=== PATIENT | male | born 1960 | race Two or more races ===

== ENCOUNTER 2019-03-04 08:23 | Inpatient (IN) | payer MEDICAID ==
[~2019-03-04] VITALS: Ht 152.4 cm; Wt 140.6 kg
[2019-03-04] VITALS (23 sets, daily range): BP systolic 94–158; BP diastolic 52–82
--- NOTE | 2019-03-04 09:00 | NUR ---
MS LINK TRAINER NOTES Patient received directly from home accompanied by radio personality (Chrissy). Skin body assessment done. IV inserted with 20G on R wrist. Patient denies any pain. Not in any type of distress. Advised caregiver to take belongings home. Patient have schedule LEFT TOTAL KNEE ARTHROPLASTY at noon. Orders noted. Made patient comfortable. NPO since midnight. Safety measures in place. Will continue to monitor and assess patient
[2019-03-04] MEDS ORDERED: CELECOXIB 100 MG CAPSULE PO SCH ×2 (09:30→12:00)
[2019-03-04] MEDS ORDERED: oxyCODONE HCL SR 10MG TAB.SR.12H PO SCH (09:30)
[2019-03-04] MEDS ORDERED: ACETAMINOPHEN 325 MG TABLET PO PRN (09:30)
[2019-03-04] MEDS ORDERED: OXYB5TAB11 PO (10:55)
[2019-03-04] MEDS ORDERED: ALBUT2 CONTNEB (10:55)
[2019-03-04] MEDS ORDERED: METO100T14 PO (10:55)
[2019-03-04] MEDS ORDERED: FURO40TA5 PO (10:55)
[2019-03-04] MEDS ORDERED: RIVA10TA PO (10:55)
[2019-03-04] MEDS ORDERED: ERGO400C PO (10:55)
[2019-03-04] MEDS ORDERED: FLUT1BLS IH (10:55)
[2019-03-04] MEDS ORDERED: ALLO300T2 PO (10:55)
[2019-03-04] MEDS ORDERED: ATOR10TA PO (10:55)
--- NOTE | 2019-03-04 10:55 | NUR ---
RN NOTES Orders carried out
[2019-03-04] MEDS ORDERED: BACITRACIN 50000 UNITS/VIAL ONE (11:24)
[2019-03-04] MEDS ORDERED: oxyCODONE HCL SR 10MG TAB.SR.12H PO ONE (11:30)
--- NOTE | 2019-03-04 11:47 | NUR ---
MS RN - PROCEDURE NOTES Patient gettting transported to OR for Left knee arthroplasty. All consents signed. V/S WNL. Patient transferred in stable condition. Denied any pain
--- NOTE | 2019-03-04 12:02 | NUR ---
MS RN NOTES Celebrex given in OR
[2019-03-04] MEDS ORDERED: BUPIVACAINE 0.75% DEXT-PF 2 ML AMPUL ONE (12:34)
[2019-03-04] MEDS ORDERED: ANCEF 1 GM/50 ML D5W IV ONE ×2 (13:00)
[2019-03-04] MEDS ORDERED: TRANEXAMIC ACID 3,000 MG in SODIUM CHLORIDE IRRIG SOLUTION 70 ML IR ONE (13:00)
[2019-03-04] MEDS ORDERED: ROCURONIUM BROMIDE 50 MG/5 ML ONE (13:15)
[2019-03-04] MEDS ORDERED: COLACE 250 MG CAPSULE PO PRN (14:30)
[2019-03-04] MEDS ORDERED: AMBIEN 5 MG TABLET PO PRN (14:30)
[2019-03-04] MEDS ORDERED: DULCOLAX 10 MG/SUPP.RECT RC PRN (14:30)
[2019-03-04] MEDS ORDERED: ZOFRAN 4mg/2ML IV PRN (14:30)
[2019-03-04] MEDS ORDERED: SENOKOT 8.6 MG TABLET PO PRN (14:30)
[2019-03-04] MEDS ORDERED: ALBUTEROL FS 2.5 MG/3 ML VIAL.NEB ONE ×2 (14:55→15:02)
[2019-03-04] MEDS ORDERED: HYDROCORTISONE SOD SUCCINATE 100 MG/2 ML VIAL ONE (14:59)
--- NOTE | 2019-03-04 15:30 | NUR ---
RT PATIENT REC'D FROM OR ORALLY INTUBATED WITH A 8.0 ETT SECURED AT 26CM. BILAT BREATH SOUNDS HEARD. PLACED ON [facility] VENT WITH SETTINGS GIVEN BY MD: AC12, 500, 60%, +5. ALARMS CHECKED + AUDIBLE. CUFF PRESSURE CHECKED EQUIPMENT HIRE MANAGER. PATIENT SUCTIONED WITH NO SECRETIONS. AMBU BAG AT [facility] Addendum: 03/04/19 at 1612 by JOSE ANGEL RT Amended: Links added.
--- NOTE | 2019-03-04 15:47 | NUR ---
MS RN NOTES OR nurse called to give report. Patient will be transferred and monitored in ICU. Called and left a voicemail to Chrissy FERGUSON) and gave report to ICU Nurse.
--- NOTE | 2019-03-04 15:49 | NUR ---
MS RN NOTES CG called back and made aware of patient's status
[2019-03-04] MEDS: IPRATROPIUM NEB FS 0.5 MG/2.5 ML AMPUL.NEB NEB SCH ×2 (16:30→19:17)
[2019-03-04] MEDS: ALBUTEROL HALF STRENGTH 1.25 MG/3 ML VIAL.NEB NEB SCH ×2 (16:30→19:17)
[2019-03-04 16:46] LABS: ABG BASE EXCESS -3.1 mmol/L; ABG OXYGEN SATURATION 97.8 % (92.0-98.5); ABG PCO2 47.8 mmHg (35.0-45.0); ABG PO2 113.8 mmHg (75.0-100.0); AaDO2 261.4 mmHg; COHb 1.2 % (0.5-1.5); MetHb 0.6 % (0.0-1.5); SITE, ABG Right Radial
[2019-03-04 17:04] LABS: BASOPHILS % (AUTO) 0.3 % (0.0-2.0); EOSINOPHILS % (AUTO) 0.9 % (0.0-6.0); HEMATOCRIT 49 % (39-51); HEMOGLOBIN 15.9 g/dL (13.5-17.5); LYMPHOCYTES # (AUTO) 0.4 /CMM (0.8-4.8); LYMPHOCYTES % (AUTO) 3.6 % (20.0-44.0); MEAN CORPUSCULAR HGB CONC 33 g/dl (31.0-36.0); MEAN CORPUSCULAR VOLUME 90 fL (80-96); MONOCYTES # (AUTO) 0.2 /CMM (0.1-1.30); NEUTROPHILS # (AUTO) 11.2 /CMM (1.8-8.9); NEUTROPHILS % (AUTO) 93.2 % (43.0-81.0); PLATELET COUNT (AUTO) 173 /CMM (150-450); RED BLOOD CELL COUNT(AUTO) 5.42 MIL/uL (4.5-6.0)
[2019-03-04 17:35] LABS: CALCIUM, SERUM 7.7 mg/dL (8.5-10.1); CREATININE 1.9 mg/dL (0.6-1.3); POTASSIUM 5.3 mmol/L (3.5-5.1)
[2019-03-04] MEDS: ANCEF 1 G in IV D5W 50 ML IV SCH (18:27)
[2019-03-04] MEDS: PROPOFOL 100 ML IV PRN ×3 (18:27→22:20)
--- NOTE | 2019-03-04 19:45 | NUR ---
ICU/CORPORATE TAX MANAGER RECEIVED REPORT FROM DAY NURSE. SEE FLOWSHEET FOR FULL ASSESSMENT, INCLUDING VENT SETTINGS, WELL SKIN ISSUES AND THE INTERVENTIONS TO THEM. PT IS CURRENTLY ON SEDATION, SEE IV SPREAD SHEET FOR RATES. PT APPEARS TO BE IN NO ACUTE DISTRESS AT THIS TIME, PT WAS TURNED AND REPOSITIONED FOR COMFORT AND CARE. WILL CONTINUE TO MONITOR THIS PT
--- NOTE | 2019-03-04 22:00 | NUR ---
ICU/TEAM MEMBER PT'S FAMILY CALLED, GAVE HER UPDATE AND ANSWERED ANY QUESTIONS.
[2019-03-05] VITALS (55 sets, daily range): BP systolic 88–136; BP diastolic 49–100
[2019-03-05] MEDS: PROPOFOL 100 ML IV PRN ×9 (00:49→23:17)
[2019-03-05] MEDS: IV 1/2NS 1000 ML 1,000 ML IV PRN ×3 (00:51→20:59)
--- NOTE | 2019-03-05 01:10 | NUR ---
ICU/DOPE HOUSE OPERATOR HELPER PT HAS HISTORY OF DM, NO ACCU CHECK WAS ORDERED.RANDOM BLOOD SUGAR WAS DONE AT 149. WILL CONTINUE TO MONITOR THIS PT AND THE BLOOD SUGAR.
[2019-03-05] MEDS: IPRATROPIUM NEB FS 0.5 MG/2.5 ML AMPUL.NEB NEB SCH ×4 (01:18→19:31)
[2019-03-05] MEDS: ALBUTEROL HALF STRENGTH 1.25 MG/3 ML VIAL.NEB NEB SCH ×4 (01:18→19:31)
--- NOTE | 2019-03-05 02:10 | NUR ---
ICU/JOINT YARNER PT WAS GIVEN AM CARE, ALONG WITH ORAL CARE. PT TOLERATED THIS WELL REMAINS ON CURRENT VENT SETTINGS WITH SATURATION AT 98%. PT WAS TURNED AND REPOSITIONED FOR COMFORT AND CARE. NO ACUTE DISTRESS SEEN. PT APPEARS TO BE RESTING CONFORMABLY. WILL CONTINUE TO MONITOR THIS PT.
[2019-03-05] MEDS: ANCEF 1 G in IV D5W 50 ML IV SCH (03:15)
--- NOTE | 2019-03-05 04:35 | NUR ---
ICU/DIE TURNER AM LABS ALONG WITH CHEST XRAY WERE DONE. AWAIT FOR ANY ABNORMAL RESULTS. PT WAS TURNED AND REPOSITIONED FOR COMFORT AND CARE.
[2019-03-05 04:54] LABS: BASOPHILS % (AUTO) 0.4 % (0.0-2.0); HEMATOCRIT 49 % (39-51); HEMOGLOBIN 15.9 g/dL (13.5-17.5); LYMPHOCYTES # (AUTO) 0.5 /CMM (0.8-4.8); LYMPHOCYTES % (AUTO) 4.2 % (20.0-44.0); MEAN CORPUSCULAR HGB CONC 33 g/dl (31.0-36.0); MEAN CORPUSCULAR VOLUME 90 fL (80-96); MONOCYTES # (AUTO) 0.9 /CMM (0.1-1.30); MONOCYTES % (AUTO) 7.7 % (2.0-12.0); NEUTROPHILS # (AUTO) 9.8 /CMM (1.8-8.9); NEUTROPHILS % (AUTO) 87.7 % (43.0-81.0); PLATELET COUNT (AUTO) 163 /CMM (150-450); RED BLOOD CELL COUNT(AUTO) 5.41 MIL/uL (4.5-6.0); WHITE BLOOD COUNT (AUTO) 11.1 K/uL (4.3-11.0)
[2019-03-05 05:08] LABS: CALCIUM, SERUM 7.7 mg/dL (8.5-10.1); CREATININE 2.5 mg/dL (0.6-1.3); MAGNESIUM 2.1 mg/dL (1.8-2.4); PHOSPHORUS 3.7 mg/dL (2.5-4.9); POTASSIUM 5.7 mmol/L (3.5-5.1)
--- NOTE | 2019-03-05 05:10 | NUR ---
ICU/BEAD PICKER PT IS TO WINGED FROM VENT TODAY, DECREASED THE SEDATION TO 45MCG FROM 50. WILL CLOSELY MONITOR THIS PT.
--- NOTE | 2019-03-05 06:05 | NUR ---
ICU/WIRE GALVANIZER PT HAS HISTORY OF DM, NO ACCU CHECK WAS ORDERED.RANDOM BLOOD SUGAR WAS DONE AT 160. WILL CONTINUE TO MONITOR THIS PT AND THE BLOOD SUGAR.
--- NOTE | 2019-03-05 06:34 | NUR ---
RT Pt received intubated w 8.0 ETT secured at 26 cm @ lip line. Pt is on [facility] vent w charted settings and is tolerating well. Alarms are set and audible. Bvm is @ hob. Hhn tx given and pt sx'd w no adverse reactions. No respiratory distress noted t/o shift. Addendum: 03/05/19 at 0635 by LANCE SNOW RT Amended: Links added.
--- NOTE | 2019-03-05 06:45 | NUR ---
ICU/REGISTERED DIETITIAN GOT AN ORDER FOR BLOOD SUGAR CHECKS EVERY Q 6 HRS AND NPO. AM SUGAR WAS 160. WILL CONTINUE TO MONITOR THIS PT'S SUGAR
[2019-03-05] MEDS ORDERED: DEXTROSE 50%-WATER 50 ML DISP.SYRIN IV PRN (07:00)
[2019-03-05] MEDS ORDERED: INSULIN REGULAR, HUMAN 100 UNIT/ML 3 ML VIAL SQ PRN (07:00)
[2019-03-05] MEDS: ASPIRIN 325 MG TABLET PO SCH (08:27)
[2019-03-05] MEDS: HYDROMORPHONE 1 MG/1 ML DISP.SYRIN IV PRN ×2 (08:29→14:46)
--- NOTE | 2019-03-05 09:15 | NUR ---
PT PLACED ON SIMV MODE PER DR CARLOS OBRIEN ABG TO BE TAKEN IN 30 MINUTES Addendum: 03/05/19 at 0922 by CHARLIE DUNLAP RT Amended: Links added.
--- NOTE | 2019-03-05 09:25 | NUR ---
WEANING ATTEMPT FAILED. PT PLACED BACK ON AC MODE SETTINGS PER DR CARLOS PROCTOR Addendum: 03/05/19 at 0930 by CHARLIE DUNLAP RT Amended: Links added.
[2019-03-05] MEDS: BLOOD SUGAR DIAGNOSTIC 1 EACH STRIP IN SCH ×3 (11:47→23:31)
[2019-03-05] MEDS: HEPARIN SODIUM, PORCINE 5000 UNITS/1 ML VIAL SQ SCH ×2 (14:47→22:54)
--- NOTE | 2019-03-05 17:35 | NUR ---
RT NOTE PT REC'D ORALLY INTUBATED VIA ETT SZ 8.0 SECURED AT 26CM @ THE LIP LINE. PT SHOWS NO SIGNS OF RESP DISTRESS OR SOB. PT SX'D FOR SMALL AMT OF THICK BLOOD TINGED SECRETIONS. ALARMS ARE SET AND AUDIBLE. VENT PLUGGED INTO RED OUTLET. AMBU BAG BEDSIDE. WILL CONTINUE TO MONITOR CLOSELY. Addendum: 03/05/19 at 1735 by CHARLIE DUNLAP RT Amended: Links added.
--- NOTE | 2019-03-05 18:00 | NUR ---
pt received at 0700, report received, alarms and patient checked, assessments completed and charted in EMR, all AM shift meds passed except for PO meds-no NG/OG access, vent wean/sedation vacation started at 0900-MD Miles in room and wean stopped r/t agitation-sedation restarted, Q2H turning completed, all assessments completed and charted, attempted to titrate propofol down and used PRN dilaudid to assist-pt still very agitated w/ lower doses of propofol-required titrating drip back up to 40mcg/kg, linen/gown change and hygiene completed today, pt in stable condition for report to PM nurse
--- NOTE | 2019-03-05 19:32 | NUR ---
PT RECEIVED ORALLY INTUBATED WITH 8.0 ETT SECURED @ 26 CM AT THE LIP ON MECHANICAL VENT W/ NOTED SETTINGS PER MD'S ORDER. VENT ALARMS CHECKED, VENT PLUGGED INTO RED OUTLET, AMBU BAG AT BEDSIDE. SUCTIONS MODERATE AMOUNT OF YELLOW/ BELL SECRETIONS. Q6 BREATHING TX GIVEN PER MD'S ORDER, NO ADVERSE REACTION NOTED. ETT PATENT AND SECURED. COSTUME SHOP MANAGER CUFF PRESSURE NOTED. NO RESPIRATORY DISTRESS NOTED AT THIS TIME . WILL CONTINUE TO MONITOR THE PT.
--- NOTE | 2019-03-05 19:45 | NUR ---
ICU/MARKETING COMMUNICATION MANAGER RECEIVED REPORT FROM DAY NURSE. SEE FLOWSHEET FOR FULL ASSESSMENT, INCLUDING VENT SETTINGS, WELL SKIN ISSUES AND THE INTERVENTIONS TO THEM. PT IS CURRENTLY ON SEDATION, SEE IV SPREAD SHEET FOR RATES. PT APPEARS TO BE IN NO ACUTE DISTRESS AT THIS TIME, PT WAS TURNED AND REPOSITIONED FOR COMFORT AND CARE. WILL CONTINUE TO MONITOR THIS PT.
--- NOTE | 2019-03-05 23:35 | NUR ---
ICU/CHEMIST ENZYMES PT'S MIDNIGHT BLOOD SUGAR WAS 129, THERE IS NO COVERAGE FOR THIS. PT IS CURRENTLY ON A NPO SLIDING SCALE. WILL CONTINUE TO MONITOR THIS PT'S SUGAR ORDERED BY .
[2019-03-06] VITALS (35 sets, daily range): BP systolic 55–163; BP diastolic 30–97
[2019-03-06] MEDS: ALBUTEROL HALF STRENGTH 1.25 MG/3 ML VIAL.NEB NEB SCH ×4 (00:46→19:30)
[2019-03-06] MEDS: IPRATROPIUM NEB FS 0.5 MG/2.5 ML AMPUL.NEB NEB SCH ×4 (00:46→19:40)
[2019-03-06] MEDS: PROPOFOL 100 ML IV PRN ×3 (01:38→07:15)
--- NOTE | 2019-03-06 01:45 | NUR ---
ICU/CARDIOPULMONARY SPECIALIST PT WAS GIVEN AM CARE, ALONG WITH ORAL CARE. PT TOLERATED THIS WELL REMAINS ON CURRENT VENT SETTINGS WITH SATURATION AT 98%. PT WAS TURNED AND REPOSITIONED FOR COMFORT AND CARE. NO ACUTE DISTRESS SEEN. PT APPEARS TO BE RESTING CONFORMABLY. WILL CONTINUE TO MONITOR THIS PT.
--- NOTE | 2019-03-06 03:50 | NUR ---
ICU/CUSTOMER MARKETING ASSISTANT AM LABS ALONG WITH CHEST XRAY WERE DONE. AWAIT FOR ANY ABNORMAL RESULTS. PT WAS TURNED AND REPOSITIONED FOR COMFORT AND CARE.
[2019-03-06 04:56] LABS: BASOPHILS # (AUTO) 0.1 /CMM (0.0-0.2); EOSINOPHILS % (AUTO) 0.7 % (0.0-6.0); HEMATOCRIT 47 % (39-51); HEMOGLOBIN 15.5 g/dL (13.5-17.5); LYMPHOCYTES # (AUTO) 0.8 /CMM (0.8-4.8); LYMPHOCYTES % (AUTO) 8.7 % (20.0-44.0); MEAN CORPUSCULAR HGB CONC 33 g/dl (31.0-36.0); MEAN CORPUSCULAR VOLUME 90 fL (80-96); MONOCYTES # (AUTO) 1.1 /CMM (0.1-1.30); MONOCYTES % (AUTO) 11.9 % (2.0-12.0); NEUTROPHILS # (AUTO) 6.9 /CMM (1.8-8.9); NEUTROPHILS % (AUTO) 77.7 % (43.0-81.0); PLATELET COUNT (AUTO) 137 /CMM (150-450); RED BLOOD CELL COUNT(AUTO) 5.24 MIL/uL (4.5-6.0); WHITE BLOOD COUNT (AUTO) 8.9 K/uL (4.3-11.0)
[2019-03-06 05:07] LABS: CALCIUM, SERUM 7.8 mg/dL (8.5-10.1); CREATININE 2.6 mg/dL (0.6-1.3); POTASSIUM 4.6 mmol/L (3.5-5.1)
[2019-03-06] MEDS: BLOOD SUGAR DIAGNOSTIC 1 EACH STRIP IN SCH ×4 (06:36→22:06)
[2019-03-06] MEDS: HEPARIN SODIUM, PORCINE 5000 UNITS/1 ML VIAL SQ SCH ×3 (06:42→22:05)
[2019-03-06] MEDS: IV 1/2NS 1000 ML 1,000 ML IV PRN ×2 (07:15→17:31)
[2019-03-06] MEDS: ASPIRIN 325 MG TABLET PO SCH (08:10)
--- NOTE | 2019-03-06 08:22 | NUR ---
RN NOTE 0715: Received patient sedated. With ETT to vent, tolerated settings at this time. With PIVs intact. On Diprivan @ 45mcg, IVF infusing as ordered. With Pérez cath intact, noted with clear yellow urine drained to BSD. With left knee dressing intact, immobilizer in place. DVT pumps on. 0745: Patient is fully awake, RT placed setting of vent to SIMV. Noted with agitation, moves right leg a lot but no pain when asked. 0820: Noted with agitation at times still. Tolerated SIMV. S/E by Hero BINDING CEMENTER FRENCH CORD, with c/o left leg pain, will give Dilaudid.
[2019-03-06] MEDS: HYDROMORPHONE 1 MG/1 ML DISP.SYRIN IV PRN ×4 (08:30→22:47)
[2019-03-06 08:42] LABS: ABG BASE EXCESS 0.9 mmol/L; ABG OXYGEN SATURATION 96.9 % (92.0-98.5); ABG PCO2 44.4 mmHg (35.0-45.0); ABG PO2 97.1 mmHg (75.0-100.0); COHb 0.8 % (0.5-1.5); MetHb 0.6 % (0.0-1.5); O2Hb 95.5 % (94.0-97.0); PEEP,BG 5 cm H2O; SITE, ABG Right Radial; VENT MODE, BG SIMV 4 PS 15 550 +5 80%; VT, ABG 550 mL
[2019-03-06] MEDS ORDERED: DC PROPOFOL WHEN EXTUBATED XX PRN ×2 (09:00→11:25)
--- NOTE | 2019-03-06 11:45 | NUR ---
RN NOTE 1130: S/E by Dr. Mlies, patient follows commands. With order for extubation. RT did extubate, patient tolerated. No stridor noted. Able to moan, placed on 3LPM O2 via NC. 95% O2 sat. 1145: Noted Afib 110-120's. Will continue to monitor.
--- NOTE | 2019-03-06 12:39 | NUR ---
RN NOTE S/E by ST for swallow eval, able to tolerate pureed. Started on diet.
[2019-03-06] MEDS: TYLENOL 650 MG TABLET PO PRN (15:46)
--- NOTE | 2019-03-06 15:59 | NUR ---
RN NOTE Patient still on pain after giving Tylenol for 5/10. Patient asked for a strong pain med for 10/10 left knee pain, daughter Bonnie at bedside, but at the time I'm about to administer, patient refused and said he's gonna ruin the visit of her daughter when he fall asleep. Will waste med with another nurse and will get if patient asks again.
--- NOTE | 2019-03-06 19:45 | NUR ---
ICU/ANTENNA MACHINE OPERATOR RECEIVED REPORT FROM DAY NURSE. SEE FLOWSHEET FOR FULL ASSESSMENT, INCLUDING OXYGEN VIA N/A. WELL SKIN ISSUES AND THE INTERVENTIONS TO THEM. PT IS CURRENTLY ALERT X2, WITH PERIODS OF CONFUSION. PT APPEARS TO BE IN NO ACUTE DISTRESS AT THIS TIME, PT WAS TURNED AND REPOSITIONED FOR COMFORT AND CARE. WILL CONTINUE TO MONITOR THIS PT.
--- NOTE | 2019-03-06 21:00 | NUR ---
ICU/EKG TECHNICIAN POST OP ORDERS RECEIVED SAID TO [facility] IVF WHEN PT IS TOLERATING PO FLUIDS. PT IS CURRENTLY DOING VERY WELL WITH PO FLUIDS. HEPLOCK CURRENT IVF HOWEVER WILL CONTINUE TO MONITOR PT AND PO INTAKE.
[2019-03-06] MEDS ORDERED: DEXTROSE 50%-WATER 50 ML DISP.SYRIN IV PRN (22:00)
--- NOTE | 2019-03-06 22:10 | NUR ---
ICU/COMPUGRAPH OPERATOR PT IS NOW EATING, CHANGED OVER SLIDING SCALE TO ACHS SLIDING SCALE INSTEAD OF NPO Q 6 HRS SLIDING SCALE. PT'S CURRENT BLOOD SUGAR IS 142, WHICH WAS COVERED WITH THE SLIDING SCALE.
--- NOTE | 2019-03-06 22:30 | NUR ---
ICU/MICRO COMPUTER DATA PROCESSOR PT WAS ABLE TO CALL DAUGHTER AND HAVE CONVERSATION FOR ABOUT 10-15 MINUTES. DAUGHTER SAID SHE'LL BE IN SOMETIME TOMORROW TO SEE HER FATHER.
[2019-03-06] MEDS: INSULIN REGULAR, HUMAN 100 UNIT/ML 3 ML VIAL SQ PRN (22:53)
--- NOTE | 2019-03-06 23:07 | NUR ---
ICU/LEAD AUDITOR PT COMPLAINED ABOUT PAIN WHICH WAS RATED 8/10. NOTIFIED CHARGE NURSE WHO THEN GAVE DILAUDID 1MG IVP TO THIS PT. WILL CONTINUE TO MONITOR THIS PT AND HIS CURRENT PAIN SCALE. CALL LIGHT WITHIN REACH.
[2019-03-07] VITALS (15 sets, daily range): BP systolic 100–177; BP diastolic 40–102
--- NOTE | 2019-03-07 00:47 | NUR ---
ICU/SECOND WATCH SERGEANT ASKED RT TO HOLD 0130 BREATHING TREATMENT SO THAT PT CAN SLEEP. PT HASN'T SLEPT VERY WELL. PT TO HAVE PHYSICAL THERAPY LATER TODAY. WILL CONTINUE TO MONITOR THIS PT.
[2019-03-07] MEDS: ALBUTEROL HALF STRENGTH 1.25 MG/3 ML VIAL.NEB NEB SCH ×4 (00:48→19:29)
[2019-03-07] MEDS: IPRATROPIUM NEB FS 0.5 MG/2.5 ML AMPUL.NEB NEB SCH ×4 (00:48→19:29)
[2019-03-07] MEDS: HYDROMORPHONE 1 MG/1 ML DISP.SYRIN IV PRN ×2 (02:47→12:15)
--- NOTE | 2019-03-07 03:00 | NUR ---
ICU/GLIDING PILOT INSTRUCTOR PT COMPLAINED ABOUT PAIN WHICH WAS RATED 8/10. NOTIFIED CHARGE NURSE WHO THEN GAVE DILAUDID 1MG IVP TO THIS PT. WILL CONTINUE TO MONITOR THIS PT AND HIS CURRENT PAIN SCALE. CALL LIGHT WITHIN REACH.
--- NOTE | 2019-03-07 05:26 | NUR ---
ICU/MONITORING AND EVALUATION ADVISOR AM LABS ALONG WITH CHEST XRAY WERE DONE. AWAIT FOR ANY ABNORMAL RESULTS. PT IS SELF TURNED AND REPOSITIONING FOR COMFORT.
[2019-03-07] MEDS: HEPARIN SODIUM, PORCINE 5000 UNITS/1 ML VIAL SQ SCH ×3 (06:46→22:50)
[2019-03-07] MEDS: INSULIN REGULAR, HUMAN 100 UNIT/ML 3 ML VIAL SQ PRN ×2 (07:15→21:56)
[2019-03-07] MEDS: BLOOD SUGAR DIAGNOSTIC 1 EACH STRIP IN SCH ×4 (07:15→21:37)
[2019-03-07] MEDS: ASPIRIN 325 MG TABLET PO SCH (08:11)
--- NOTE | 2019-03-07 08:48 | NUR ---
RN NOTE 0715: Received patient awake, A/Ox3, noted with saying non sensible words at times. BS 158, 2 units insulin given right deltoid. Breakfast served. PIVs intact. Pérez cath intact, noted with clear leroy colored urine drained to BSD. DVT pumps on. Left knee dressing intact, no bleeding. 2/10 left knee pain, repositioned for comfort, will continue to monitor. Afib 110-120's on the monitor. on 3LPM of O2 via NC, sat 96%. 0845: S/E by Hero WATERS, verbalized order to may transfer to [facility], and he will start him on Metoprolol for HR Afib 120's. CN aware re: the transfer order. Removed Pérez cath and placed condom cath, patient tolerated, no bleeding noted. Will monitor UOP. Informed SUPPLY CHAIN TECHNICIAN locked PIV for patient taking good oral intake, SUPPLY CHAIN TECHNICIAN agreed. Will encourage patient to inform staff for urge of voiding to start on urinals when patient is able.
[2019-03-07] MEDS: OXYBUTYNIN CHLORIDE 5 MG TABLET PO SCH (09:26)
[2019-03-07] MEDS: RIVAROXABAN 10 MG TABLET PO SCH (09:27)
[2019-03-07 09:31] LABS: BASOPHILS # (AUTO) 0.1 /CMM (0.0-0.2); BASOPHILS % (AUTO) 1.3 % (0.0-2.0); EOSINOPHILS % (AUTO) 5.6 % (0.0-6.0); HEMATOCRIT 44 % (39-51); HEMOGLOBIN 14.6 g/dL (13.5-17.5); LYMPHOCYTES # (AUTO) 0.6 /CMM (0.8-4.8); LYMPHOCYTES % (AUTO) 7.8 % (20.0-44.0); MEAN CORPUSCULAR HGB CONC 33 g/dl (31.0-36.0); MEAN CORPUSCULAR VOLUME 90 fL (80-96); MONOCYTES # (AUTO) 0.9 /CMM (0.1-1.30); MONOCYTES % (AUTO) 11.1 % (2.0-12.0); NEUTROPHILS % (AUTO) 74.2 % (43.0-81.0); PLATELET COUNT (AUTO) 133 /CMM (150-450); RED BLOOD CELL COUNT(AUTO) 4.92 MIL/uL (4.5-6.0); WHITE BLOOD COUNT (AUTO) 8.1 K/uL (4.3-11.0)
[2019-03-07 09:50] LABS: CALCIUM, SERUM 8.2 mg/dL (8.5-10.1); CREATININE 2.1 mg/dL (0.6-1.3); POTASSIUM 4.6 mmol/L (3.5-5.1)
[2019-03-07] MEDS: METOPROLOL TARTRATE 50 MG TABLET PO SCH ×2 (09:56→21:37)
[2019-03-07] MEDS: CHOLECALCIFEROL (VITAMIN D 3) 400 UNIT TABLET PO SCH (09:56)
[2019-03-07] MEDS: TYLENOL 650 MG TABLET PO PRN (10:18)
[2019-03-07] MEDS: FLUTICASONE/VILANTEROL 1 EACH BLST.W.DEV IH SCH (10:49)
--- NOTE | 2019-03-07 11:09 | NUR ---
RT NOTE: DAILY ABG'S CANCELLED PER .
--- NOTE | 2019-03-07 11:11 | NUR ---
RN NOTE Transferred patient to [facility] via bed using ACLS protocol. No any significant changes noted. VSS. Kept clean, warm and dry. Needs attended. Report given to Ghada DARBY for BEATRIZ. Condom cath intact.
--- NOTE | 2019-03-07 11:18 | NUR ---
RECEIVED PT FROM ICU. AWAKE A/O X3 , ON O2 3 L VIA NC, VS ARE STABLE AND WITHIN NORMAL RANGE. PT AT BEDSIDE.
[2019-03-07] MEDS: ATORVASTATIN 10 MG TABLET PO SCH (18:25)
--- NOTE | 2019-03-07 19:26 | NUR ---
PATIENT IN STABLE CONDITION, RESTING IN BED. ALL NEEDS ATTENDED AND PATIENT KEPT CLEAN AND COMFORTABLE. IV LINE INTACT AND PATENT H/L. WILL ENDORSE TO NEXT SHIFT FOR BEATRIZ.
--- NOTE | 2019-03-07 19:30 | NUR ---
RN NOTES CITIZENSHIP TEACHER BEDSIDE REPORT FROM AM RN. PATIENT IS IN BED A/OX3. NO SOB, NO DISTRESS NOTED AT THIS TIME. PATIENT IS ON 3L O2 VIA NC WITH SPO2 OF 95%. ON BARREL RIB MATTING MACHINE OPERATOR A-FIB CONTROLLED WITH HR OF 90'S.LEFT KNEE DRESSING IS IN PLACE WITH COMPLAINT OF PAIN BUT SAID HE WILL LET ME KNOW ABOUT PAIN MEDICATION. BOTH IV LINES ARE PATIENT AND INTACT. ALL SAFETY MEASURES ARE IMPLEMENTED, BED IN LOW, LOCKED POSITION, CALL LIGHT IN REACH. WILL CONTINUE TO MONITOR PATIENT CLOSELY. Addendum: 03/08/19 at 0035 by AUGIE LEWIS RN PATIENT HAS LEFT UPPER CHEST WALL PACE MAKER IN PLACE.
[2019-03-07] MEDS: HYDROCODONE/APAP 5/325MG 1 EACH TABLET PO PRN (21:36)
[2019-03-08] VITALS: BP 132/72
[2019-03-08] MEDS: ALBUTEROL HALF STRENGTH 1.25 MG/3 ML VIAL.NEB NEB SCH ×4 (01:07→20:22)
[2019-03-08] MEDS: IPRATROPIUM NEB FS 0.5 MG/2.5 ML AMPUL.NEB NEB SCH ×4 (01:07→20:22)
[2019-03-08 04:00] VITALS: BP 113/71
[2019-03-08 07:08] LABS: CALCIUM, SERUM 8.5 mg/dL (8.5-10.1)
[2019-03-08] MEDS: HEPARIN SODIUM, PORCINE 5000 UNITS/1 ML VIAL SQ SCH ×3 (07:15→23:04)
--- NOTE | 2019-03-08 07:15 | NUR ---
EGG SMELLER OPENING NOTE RECEIVED PATIENT IN BED. SLEEPING, EASILY AROUSED WITH VERBAL STIMULI. ORIENTED X3. ON 3L O2 VIA NC, TOLERATING WELL. IN NO APPARENT DISTRESS OR DISCOMFORT AT THIS TIME. RESPIRATIONS EVEN ANS UNLABORED. DENIES PAIN AND SOB. PATIENT ON TELE MONITORING WITH V-PACING A-FIB AND HR OF 73 AT THIS TIME. LEFT FOREARM 20G IVC SL, PATENT AND INTACT, LEFT HAND IVC 20G, SL, PATENT AND INTACT. PATIENT WITH CONDOM CATHETER IN PLACE, DRAINING CLEAR YELLOW URINE. PATIENT KEPT CLEAN AND COMFORTABLE. ALL NEEDS ATTENDED, SAFETY MEASURES IN PLACE, BED IN LOW LOCKED POSITION, SIDE RAILS UP X3, CALL LIGHT WITHIN EASY REACH. WILL CONTINUE TO MONITOR.
[2019-03-08 08:00] VITALS: BP 115/77
[2019-03-08] MEDS: CHOLECALCIFEROL (VITAMIN D 3) 400 UNIT TABLET PO SCH (08:17)
[2019-03-08] MEDS: BLOOD SUGAR DIAGNOSTIC 1 EACH STRIP IN SCH ×4 (08:17→21:31)
[2019-03-08] MEDS: OXYBUTYNIN CHLORIDE 5 MG TABLET PO SCH (08:17)
[2019-03-08] MEDS: ASPIRIN 325 MG TABLET PO SCH (08:17)
[2019-03-08] MEDS: METOPROLOL TARTRATE 50 MG TABLET PO SCH ×2 (08:18→21:31)
[2019-03-08] MEDS: FLUTICASONE/VILANTEROL 1 EACH BLST.W.DEV IH SCH (08:18)
[2019-03-08] MEDS: RIVAROXABAN 10 MG TABLET PO SCH (08:19)
[2019-03-08] MEDS: HYDROCODONE/APAP 5/325MG 1 EACH TABLET PO PRN (13:36)
[2019-03-08 16:00] VITALS: BP 125/80
[2019-03-08] MEDS: INSULIN REGULAR, HUMAN 100 UNIT/ML 3 ML VIAL SQ PRN (17:02)
[2019-03-08] MEDS: HYDROMORPHONE 1 MG/1 ML DISP.SYRIN IV PRN (17:05)
[2019-03-08] MEDS: ATORVASTATIN 10 MG TABLET PO SCH (17:05)
--- NOTE | 2019-03-08 17:56 | NUR ---
PATIENT IN STABLE CONDITION. ENDORSED TO VICKIE RN FOR BEATRIZ.
--- NOTE | 2019-03-08 19:25 | NUR ---
rn pm open note report recieved. patient seen resting in bed in semi fowlers position on room air. patient is post op left knee arthroplasty. left knee covered with den bandage cdi. immobilizer at the bedside. cpm machine at the bedside currently off. reviewed poc questions concerns addressed. reviewed pain management plan. states pain is tolerable at this time. bed down locked call light in reach. verbalized understanding to call for assistance if needed.
[2019-03-08 20:00] VITALS: BP 138/87
[2019-03-08 20:30] VITALS: BP 138/87
--- NOTE | 2019-03-08 21:36 | NUR ---
CONSTIPATION PATIENT STATES HE HAS NOT HAD BM SINCE February. ADMINISTERED SENNA ORDERED PRN. WILL CONT TO MONITOR.
[2019-03-09] MEDS: ALBUTEROL HALF STRENGTH 1.25 MG/3 ML VIAL.NEB NEB SCH ×4 (01:20→20:25)
[2019-03-09] MEDS: IPRATROPIUM NEB FS 0.5 MG/2.5 ML AMPUL.NEB NEB SCH ×4 (01:20→20:25)
[2019-03-09] MEDS: HEPARIN SODIUM, PORCINE 5000 UNITS/1 ML VIAL SQ SCH (06:18)
[2019-03-09] MEDS: BLOOD SUGAR DIAGNOSTIC 1 EACH STRIP IN SCH ×4 (06:31→21:51)
--- NOTE | 2019-03-09 06:48 | NUR ---
RN CLOSING NOTE. PATIENT IN BED SEMIFOWLERS ON 3LNC IN NO APPARENT DISTRESS. PATIENT COUGHING UP PHLEGM WITH SPECKS OF BLOOD. PATIENT DENIES PAIN AT THIS TIME. BED DOWN LOCKED SR X 2 CALL LIGHT IN REACH. WILL ENDORSE FOR BEATRIZ TO DAY SHIFT.
--- NOTE | 2019-03-09 07:19 | NUR ---
MS/RN Patient received Patient received from software designer. A/O X3, vital signs stable, denies any pain or discomfort at this time. Dressing to left knee dry and intact. Heplock 20g to left hand shows no signs of infiltration and flushes well with saline. Call light within reach, will continue to monitor and ensure safety.
[2019-03-09 08:00] VITALS: BP 135/99
[2019-03-09] MEDS: CHOLECALCIFEROL (VITAMIN D 3) 400 UNIT TABLET PO SCH (08:16)
[2019-03-09] MEDS: ASPIRIN 325 MG TABLET PO SCH (08:16)
[2019-03-09] MEDS: OXYBUTYNIN CHLORIDE 5 MG TABLET PO SCH (08:16)
[2019-03-09] MEDS: METOPROLOL TARTRATE 50 MG TABLET PO SCH ×2 (08:16→20:28)
[2019-03-09] MEDS: RIVAROXABAN 10 MG TABLET PO SCH (08:20)
[2019-03-09] MEDS: FLUTICASONE/VILANTEROL 1 EACH BLST.W.DEV IH SCH (08:22)
[2019-03-09 08:39] VITALS: BP 135/99
--- NOTE | 2019-03-09 08:41 | NUR ---
MS/RN S/B Dr Briggs Seen by Dr Briggs - patient to be discharged to SNF later today.
[2019-03-09] MEDS ORDERED: ALLOPURINOL 100 MG TABLET PO SCH (09:00)
[2019-03-09] MEDS: INSULIN REGULAR, HUMAN 100 UNIT/ML 3 ML VIAL SQ PRN (12:12)
--- NOTE | 2019-03-09 12:13 | NUR ---
MS/RN Blood sugar Blood sugar at noon 136, per sliding scale two units regular insulin to be administered.
[2019-03-09] MEDS: HYDROCODONE/APAP 5/325MG 1 EACH TABLET PO PRN ×2 (13:40→21:32)
--- NOTE | 2019-03-09 13:52 | NUR ---
MS/excavator backhoe operator plan Call received from Ave oil field caser. Patient now has accepting facility and will be discharged to [facility] in [place] . Awaiting authorization from insurance.
[2019-03-09 16:00] VITALS: BP 130/84
[2019-03-09 16:04] VITALS: BP 130/84
[2019-03-09] MEDS: ATORVASTATIN 10 MG TABLET PO SCH (18:00)
--- NOTE | 2019-03-09 18:33 | NUR ---
MS/eviction specialist Patient to be discharged to post acute later this evening, ambulance arranged for 9p grape picker. Patient will be going to [facility] . All paperwork completed and copies made, heplock removed, patient still has name bands to be removed. All belongings accounted for and signed off on belongings list. Will endorse to clearance coordinator.
--- NOTE | 2019-03-09 19:30 | NUR ---
RECEIVED PT IN BED AWAKE AND RESPONSIVE, BREATHING EVENLY. NO SOB, NAD. SKIN WARM AND DRY, DRESSING ON LLE C/D/I. NO C/O PAIN OR DISCOMFORT AT THIS TIME, PT TO BE DISCHARGED . AWARE AND UNDERSTANDS. AWAITING FOR THE TRANSPORTATION. NEEDS MET. BED LOW LOCKED. SRX2. CALL LIGHT WITHIN REACH, WILL CONT TO MONITOR.
[2019-03-09 20:00] VITALS: BP 143/81
[2019-03-09 20:28] VITALS: BP 143/81
--- NOTE | 2019-03-09 21:45 | NUR ---
PATIENT WAS PICKED UP BY AMBULANCE AND DISCHARGED TO THE SNF IN STABLE CONDITION. NORCO 5 TWO TABS GIVEN PRIOR TO DISCHARGE PER PT'S REQUEST FOR C/O L KNEE PAIN. ALL BELONGINGS WERE PICKED UP BY THE PT . D/C PAPERS ALONG WITH THE REPORT GIVEN TO THE PARAMEDICS. REPORT WAS ALREADY GIVEN TO MARINA AT SNF BY LIMA DAY SHIFT RN AND MICHAEL IS ALSO D/C'D BY HER. DRESSING ON THE L KNEE REMAINED C/D/I . IMMOBILIZER WAS PLACED ON THE L KNEE.
== END 2019-03-09 21:45 | DRG 302 ==
LOC: DS 08:23 → MED 08:26 → ICU 15:59 → TELE 03-07 10:57 → MED 03-08 08:33
PROVIDERS: ADMIT Nurse Practitioner Acute Care; ATTEND Family Medicine
PROC: 0BH17EZ Insertion of Endotracheal Airway into Trachea, Via Natural or Artificial Opening (ICD-10-PCS; principal; 2019-03-04)
PROC: 0SRD0J9 Replacement of Left Knee Joint with Synthetic Substitute, Cemented, Open Approach (ICD-10-PCS; principal; 2019-03-04)
PROC: 5A1945Z Respiratory Ventilation, 24-96 Consecutive Hours (ICD-10-PCS; principal; 2019-03-04)
DX: M17.12 Unilateral primary osteoarthritis, left knee (principal); N17.0 Acute kidney failure with tubular necrosis; J96.01 Acute respiratory failure with hypoxia; D68.59 Other primary thrombophilia; I13.0 Hypertensive heart and chronic kidney disease with heart failure and stage 1 through stage 4 chronic kidney disease, or unspecified chronic kidney disease; D68.32 Hemorrhagic disorder due to extrinsic circulating anticoagulants; I95.9 Hypotension, unspecified; I50.9 Heart failure, unspecified; E66.2 Morbid (severe) obesity with alveolar hypoventilation; E87.1 Hypo-osmolality and hyponatremia; E87.5 Hyperkalemia; R41.82 Altered mental status, unspecified; I48.2 Chronic atrial fibrillation; J44.9 Chronic obstructive pulmonary disease, unspecified; Z95.0 Presence of cardiac pacemaker; N18.9 Chronic kidney disease, unspecified; R04.2 Hemoptysis; M10.9 Gout, unspecified; M19.90 Unspecified osteoarthritis, unspecified site; Z68.44 Body mass index [BMI] 60.0-69.9, adult; D72.829 Elevated white blood cell count, unspecified; Z87.891 Personal history of nicotine dependence; Z96.641 Presence of right artificial hip joint
CPT/HCPCS: 31720; 36415; 36600; 71045-TC; 80048-TC; 82803-TC; 82962-TC; 83735-TC; 84100-TC; 85025-TC; 86850-TC; 86921-TC; 87081-TC; 88305-TC; 88311-TC; 92611-TC; 94002-TC; 94003-TC; 94760-TC; 94799-TC; 97110-TC; 97116-TC; 97530-TC; 97760-TC; A4217; A4349; A6253; A6402; C1713; G0378; J0171; J0330; J0690; J1100; J1170; J1644; J1720; J1815; J2405; J2704; J2710; J3490; J7030; J7060